=== PATIENT | female | born 1990 | race Caucasian/White ===

== ENCOUNTER → 2016-05-06 | Outpatient (CLI) | payer BC ==
--- NOTE | 2016-05-06 10:46 | REP ---
RIGHT ANKLE, FOUR VIEWS: HISTORY: Pain. There is a nondisplaced fracture of the distal fibula. There is slight widening of the lateral joint space. There is no dislocation. Soft tissue swelling is present. IMPRESSION: Nondisplaced fracture of the distal fibula. Signed by Jonathon Wan MD 05/06/2016 10:47 A
== END ==
LOC: M ADAMS 10:02
PROVIDERS: ATTEND Physician Assistant
DX: M25.571 Pain in right ankle and joints of right foot (principal); S82.891A Other fracture of right lower leg, initial encounter for closed fracture; X58.XXXA Exposure to other specified factors, initial encounter; Y92.89 Other specified places as the place of occurrence of the external cause; Y93.89 Activity, other specified; Y99.8 Other external cause status

== ENCOUNTER → 2017-07-19 | Outpatient (REF) | payer BC | LOC: M LAB REF 10:24 | DX: J02.9 Acute pharyngitis, unspecified (principal) | CPT/HCPCS: 87081 ==